=== PATIENT | male | born 1975 | race Caucasian/White ===

== ENCOUNTER 2018-06-30 11:57 | Emergency (ER) | payer SELFPAY ==
[~2018-06-30] VITALS: Ht 167.6 cm; Wt 75.0 kg
[2018-06-30 12:03] VITALS: BP 126/88
== END 2018-06-30 16:34 | disposition left against medical advice (07) ==
LOC: ER 11:57
DX: Z53.21 Procedure and treatment not carried out due to patient leaving prior to being seen by health care provider (principal)